=== PATIENT | male | born 1960 | race Hispanic/Latino ===

== ENCOUNTER 2018-04-30 02:11 | Inpatient (IN) | payer SELFPAY ==
[2018-04-30] MEDS ORDERED: Aspirin 325 mg EC Tablets PO STA (02:34)
--- NOTE | 2018-04-30 02:37 | ED PDOC ---
Arrival/HPI - General Time Seen by Provider: 04/30/18 02:30 Historian: Patient - Critical Care Critical Care Minutes: 30 minutes - History of Present Illness Narrative History of Present Illness (Text): 04/30/18 02:33 58 year old male, past medical history includes diabetes, presents to the emergency department complaining of chest pain, left-sided shoulder pain, and body aches that began 4 days ago. poor historian. no h/o of mi, stress test, cath in past. . Patient denies any fever, chills, shortness of breath, nausea, vomiting, diarrhea, urinary symptoms, back pain, neck pain, headache, dizziness , or any other complaints. 04/30/18 04:50 Time/Duration: Other (4 days) Symptom Onset: Gradual Symptom Course: Unchanged Activities at Onset: Light Context: Home Past Medical History - Provider Review Nursing Documentation Reviewed: Yes Family/Social History - Physician Review Nursing Documentation Reviewed: Yes Family/Social History: No Known Family HX Allergies/Home Meds Allergies/Adverse Reactions: Allergies No Known Allergies Allergy (Verified 04/30/18 02:31) Home Medications: Home Meds Medication Instructions Recorded Confirmed No Known Home Med 04/30/18 04/30/18 Review of Systems - Physician Review All systems were reviewed & negative as marked: Yes - Review of Systems Constitutional: absent: Fevers, Other (Chills) Respiratory: absent: SOB Cardiovascular: Chest Pain Gastrointestinal: absent: Diarrhea, Nausea, Vomiting Musculoskeletal: Other (left-sided shoulder pain and body aches). absent: Back Pain, Neck Pain Neurological: absent: Headache, Dizziness Physical Exam Vital Signs Reviewed: Yes Vital Signs Temp Pulse Resp BP Pulse Ox 04/30/18 02:15 98.2 F 104 H 105 H 154/95 H 96 Temperature: Afebrile Blood Pressure: Hypertensive Pulse: Tachycardic Respiratory Rate: Tachypneic Appearance: Positive for: Well-Appearing, Non-Toxic, Comfortable, Other ( Morbidly obese) Pain Distress: None Mental Status: Positive for: Alert and Oriented X 3 - Systems Exam Head: Present: Atraumatic, Normocephalic Pupils: Present: PERRL Extroacular Muscles: Present: EOMI Conjunctiva: Present: Normal Mouth: Present: Moist Mucous Membranes Neck: Present: Normal Range of Motion Respiratory/Chest: Present: Clear to Auscultation, Good Air Exchange. No: Respiratory Distress, Accessory Muscle Use Cardiovascular: Present: Regular Rate and Rhythm, Normal S1, S2. No: Murmurs Abdomen: No: Tenderness, Distention, Peritoneal Signs Back: Present: Normal Inspection Upper Extremity: Present: Normal Inspection. No: Cyanosis, Edema Lower Extremity: Present: Normal Inspection. No: Edema Neurological: Present: GCS=15, CN II-XII Intact, Speech Normal Skin: Present: Warm, Dry, Normal Color. No: Rashes Psychiatric: Present: Alert, Oriented x 3, Normal Insight, Normal Concentration Medical Decision Making ED Course and Treatment: 04/30/18 02:28 Impression: 58 year old male presents complaining of chest pain, left-sided shoulder pain, and body aches that began 4 days ago. Plan: -- Labs -- Brilinta, Ecotrin, Heparin -- Urinalysis -- Chest X-ray -- EKG -- Reassess and disposition Progress Notes: 04/30/18 02:31 Code heart called EKG shows STEMI anterior lateral. Interpreted by me. 04/30/18 02:34 Case discussed with Dealer Development Manager Dr. Camejo requesting patient be administered Brilinta and Heparin ASA Patient was directly transported to [facility] Speaking [facility]. 04/30/18 02:52 CXR Impression: As read by me, no infiltrates 04/30/18 02:57 Case discussed with medical transcription supervisor and Dr. Harper Mondragon who is aware and agrees with the plan. Accepts patient into hospitalist service. - Critical Care Critical Care Minutes: 30 minutes - Lab Interpretations Lab Results: 04/30/18 02:35 04/30/18 02:35 Lab Results 04/30/18 02:35: PT 11.3, INR 0.99, APTT 25.8 04/30/18 02:35: WBC 13.7 H, RBC 4.76, Hgb 14.6, Hct 42.2, MCV 88.7, MCH 30.7, MCHC 34.6, RDW 13.4, Plt Count 197, MPV 11.8 H, Gran % 70.6 H, Lymph % (Auto) 15.7 L, [place] % (Auto) 12.5 H, Eos % (Auto) 1.1 L, Baso % (Auto) 0.1, Gran # 9.65 H, Lymph # (Auto) 2.2, [place] # (Auto) 1.7 H, Eos # (Auto) 0.2, Baso # (Auto ) 0.02 04/30/18 02:35: Sodium 140, Potassium 4.0, Chloride 104, Carbon Dioxide 25, Anion Gap 15, BUN 14, Creatinine 0.7 L, Est GFR ( Amer) > 60, Est GFR ( Non-Af Amer) > 60, Random Glucose 193 H, Calcium 9.9, Phosphorus 3.1, Magnesium 2.3 H, Total Bilirubin 2.3 H, AST 72 H, ALT 79 H, Alkaline Phosphatase 97, Lactate Dehydrogenase 1024 H, Total Creatine Kinase 240 H, CK-MB (CK-2) 4.7 H, CK-MB (CK-2) % Cancelled, Troponin I 14.00 H*, Total Protein 7.6, Albumin 4.5, Globulin 3.2, Albumin/Globulin Ratio 1.4 I have reviewed the lab results: Yes - RAD Interpretation Radiology Orders: 04/30/18 02:37 CHEST PORTABLE [RAD] Stat - EKG Interpretation Interpreted by ED Physician: Yes Type: 12 lead EKG - Medication Orders Current Medication Orders: Aspirin (Ecotrin) 81 mg PO DAILY TER[facility] Atorvastatin Calcium (Lipitor) 80 mg PO DIN [facility] Carvedilol (Coreg) 3.125 mg PO BID [facility] Sodium Chloride (Sodium Chloride 0.45%) 1,000 mls @ 100 mls/hr IV .Q10H [facility] Stop: 04/30/18 08:45 Lisinopril (Zestril) 2.5 mg PO DAILY [facility] Ticagrelor (Brilinta) 90 mg PO BID [facility] Discontinued Medications Aspirin (Ecotrin) 325 mg PO STAT STA Stop: 04/30/18 02:35 Last Admin: 04/30/18 02:39 Dose: 325 mg Heparin Sodium (Porcine) (Heparin) 5,000 units IV ONCE ONE PRN Reason: Protocol Stop: 04/30/18 02:36 Last Admin: 04/30/18 02:45 Dose: 5,000 units eMAR Start Stop Document 04/30/18 02:45 EMILIE (Rec: 04/30/18 03:16 EMILIE [id number]) Intravenous Solution Start Date 04/30/18 Start Time 02:45 End Date 04/30/18 End time 02:46 Total Infusion Time 1 Morphine Sulfate (Morphine) 2 mg IVP ONCE ONE Stop: 04/30/18 04:42 Nitroglycerin (Nitrostat Sl Tab) 0.4 mg SL Q5M TER[facility] Stop: 04/30/18 04:41 Ticagrelor (Brilinta) 180 mg PO STAT STA Stop: 04/30/18 02:35 Last Admin: 04/30/18 02:39 Dose: 180 mg - Scribe Statement The provider has reviewed the documentation as recorded by the Boubacar Hanks Provider Scribe Attestation: All medical record entries made by the Boubacar were at my direction and personally dictated by me. I have reviewed the chart and agree that the record accurately reflects my personal performance of the history, physical exam, medical decision making, and the department course for this patient. I have also personally directed, reviewed, and agree with the discharge instructions and disposition. Disposition/Present on Arrival - Present on Arrival Any Indicators Present on Arrival: No - Disposition Have Diagnosis and Disposition been Completed?: Yes Diagnosis: STEMI (ST elevation myocardial infarction) Disposition: HOSPITALIZED Disposition Time: 02:00 Condition: CRITICAL
[2018-04-30] MEDS ORDERED: Lidocaine PF 2% (5 ml) Inj (For Cardiac Arrhy) ONE (02:44)
[2018-04-30] MEDS ORDERED: Phenylephrine 10 mg/ml Inj ONE (02:44)
[2018-04-30] MEDS ORDERED: Iohexol 350mgl/ml 50 ML ONE (02:44)
[2018-04-30] MEDS ORDERED: Nitroglycerin 50mg in D5W 0 MG/0 ML BOTTLE IV ONE (02:45)
[2018-04-30] MEDS ORDERED: Iodixanol 320 MG/ML 100 ML BOTTLE IV ONE (02:45)
[2018-04-30] MEDS ORDERED: Iodixanol 320 MG/ML 200 ML BOTTLE IV ONE (02:45)
[2018-04-30] MEDS ORDERED: Midazolam 2 MG/2 ML VIAL ONE ×2 (02:47→03:10)
[2018-04-30 02:56] LABS: INR 0.99; PROTHROMBIN TIME 11.3 SECONDS (9.4-12.5)
[2018-04-30 02:59] LABS: ALBUMIN 4.5 g/dL (3.0-4.8); BLOOD UREA NITROGEN 14 mg/dL (7-21); CALCIUM 9.9 mg/dL (8.4-10.5); GFR AFRICAN-AMERICAN > 60; GFR NON-AFRICAN AMERICAN > 60; PARTIAL THROMBOPLASTIN TIME 25.8 Seconds (25.1-36.5)
[2018-04-30 03:00] LABS: ALB/GLOB RATIO 1.4 (1.1-1.8); ALT/SGPT 79 U/L (7-56); AST/SGOT 72 U/L (17-59)
[2018-04-30 03:06] LABS: BASO # 0.02 K/mm3 (0.0-2.0); BASO % 0.1 % (0.0-3.0); EOS # 0.2 (0.0-0.7); EOS % 1.1 % (1.5-5.0); GRAN # 9.65 (1.4-6.5); GRAN % 70.6 % (50.0-68.0); HEMOGLOBIN 14.6 g/dL (14.0-18.0); LYMPH # 2.2 (1.2-3.4); LYMPH % 15.7 % (22.0-35.0); MEAN CELL VOLUME 88.7 fl (80.0-105.0); MEAN CORPUSCULAR HEMOGLOBIN 30.7 pg (25.0-35.0); MEAN CORPUSCULAR HGB CONC 34.6 g/dl (31.0-37.0); MEAN PLATELET VOLUME 11.8 fl (7.0-11.0); MONO # 1.7 (0.1-0.6); MONO % 12.5 % (1.0-6.0); RBC 4.76 10^6/uL (3.5-6.1); RED CELL DISTRIBUTION WIDTH 13.4 % (11.5-14.5); WHITE BLOOD COUNT 13.7 10^3/ul (4.5-11.0)
[2018-04-30] MEDS ORDERED: Eptifibatide 20 mg/10mL Inj IVP ONE (03:15)
--- NOTE | 2018-04-30 03:17 | CP.PCM.HP ---
History of Present Illness - History of Present Illness History of Present Illness: Jason Murray D.O. Internal Medicine [employer], PGY-1. History and Physical for Dr Alanna Silva: Chest pain x4 days HPI: 58 y/o male with PMH of HTN, DM2 presents to ED with 4 days of left sided chest pain, pressure-like, 6-7/10, constant, radiates to left axilla and lt shoulder, no alleviating or worsening factors. Patient though it is muscloskeletal pain and did not seek medical attention, but decided to come to ED for worsening of symptoms. Pain is not associated with palpitation, nausea, vomiting, cough, dizziness. Patient ststed that his BP reading at home in 150s/90s but does not take any meds except baby asprin. He is also diabetic. Patient denied h/o similar symptoms in the past, CVA, DVT, PVD . Patient had no recent sick contacts, or recent travel. In ED: EKG: NSR @100, inferior and anterolateral infarct Code heart was announsed. patient was mahoney to lab tech. PMH:HTN, DM2 (non compliant with meds) PSH: denied SocH: no smoking, no drug, drinks alcohol FH: Father at 60s with CAD, mom at age 71 of CAD MEDS: ASA ALL: NKDA Present on Admission - Present on Admission Any Indicators Present on Admission: No Review of Systems - Constitutional Constitutional: Sleep Apnea. absent: Chills, Fever, Headache, Night Sweats - EENT Eyes: absent: Blurred Vision, Discharge, Irritation Ears: absent: Ear Pain, Dizziness Nose/Mouth/Throat: absent: Nasal Congestion, Nose Pain, Dental Pain - Cardiovascular Cardiovascular: Chest Pain, Chest Pain at Rest. absent: Claudication, Diaphoresis, Edema, Irregular Heart Rhythm, Leg Edema, Orthopnea, Palpitations, Paroxysmal Nocturnal Dyspnea - Respiratory Respiratory: absent: Cough, Hemoptysis, Dyspnea on Exertion, Pain on Inspiration - Gastrointestinal Gastrointestinal: absent: Abdominal Pain, Early Satiety, Hematemesis - Genitourinary Genitourinary: absent: Difficulty Urinating, Pyuria, Nocturia, Urinary Incontinence, Urinary Urgency - Musculoskeletal Musculoskeletal: absent: Back Pain, Myalgias, Neck Pain, Numbness - Integumentary Integumentary: absent: Lesions, Pruritus, Rash - Neurological Neurological: absent: Burning Sensations, Dizziness, Numbness, Focal Weakness, Loss of Vision, Sensory Deficit - Psychiatric Psychiatric: absent: Anxiety, Depression - Endocrine Endocrine: absent: Excessive Sweating, Fatigue, Palpitations, Polydipsia, Polyphagia - Hematologic/Lymphatic Hematologic: absent: Easy Bleeding, Easy Bruising Past Patient History - Past Social History Smoking Status: Former Smoker Alcohol: > 2 Drinks/Day - CARDIAC Hx Cardiac Disorders: Yes Hx Hypertension: Yes - PULMONARY Hx Respiratory Disorders: No - NEUROLOGICAL Hx Neurological Disorder: No - HEENT Hx HEENT Problems: No - RENAL Hx Chronic Kidney Disease: No - ENDOCRINE/METABOLIC Hx Diabetes Mellitus Type 2: Yes - HEMATOLOGICAL/ONCOLOGICAL Hx Blood Disorders: No - INTEGUMENTARY Hx Dermatological Problems: No - MUSCULOSKELETAL/RHEUMATOLOGICAL Hx Musculoskeletal Disorders: No - GASTROINTESTINAL Hx Gastrointestinal Disorders: No - GENITOURINARY/GYNECOLOGICAL Hx Genitourinary Disorders: No - PSYCHIATRIC Hx Psychophysiologic Disorder: No Hx Substance Use: No - SURGICAL HISTORY Hx Surgeries: No - ANESTHESIA Hx Anesthesia: No Meds Allergies/Adverse Reactions: Allergies Allergy/AdvReac Type Severity Reaction Status Date / Time No Known Allergies Allergy Verified 04/30/18 02:31 Physical Exam - Constitutional Appears: Well, Non-toxic, No Acute Distress - Head Exam Head Exam: ATRAUMATIC, NORMAL INSPECTION, NORMOCEPHALIC - Eye Exam Eye Exam: EOMI, Normal appearance, PERRL Pupil Exam: NORMAL ACCOMODATION, PERRL - ENT Exam ENT Exam: Mucous Membranes Moist, Normal Exam - Neck Exam Neck exam: Positive for: Normal Inspection - Respiratory Exam Respiratory Exam: Clear to Auscultation Bilateral, NORMAL BREATHING PATTERN - Cardiovascular Exam Cardiovascular Exam: REGULAR RHYTHM - GI/Abdominal Exam GI & Abdominal Exam: Normal Bowel Sounds, Soft. absent: Mass, Tenderness - Extremities Exam Extremities exam: Positive for: normal capillary refill, normal inspection. Negative for: pedal edema - Back Exam Back exam: NORMAL INSPECTION - Neurological Exam Neurological exam: Alert, CN II-XII Intact, Normal Gait, Oriented x3, Reflexes Normal - Psychiatric Exam Psychiatric exam: Normal Affect, Normal Mood - Skin Skin Exam: Dry, Intact, Normal Color, Warm Results - Vital Signs Recent Vital Signs: Last Vital Signs Temp 98.2 F 04/30/18 02:15 Pulse 104 H 04/30/18 02:15 Resp 105 H 04/30/18 02:15 BP 154/95 H 04/30/18 02:15 Pulse Ox 96 04/30/18 02:15 - Labs Result Diagrams: 04/30/18 02:35 04/30/18 02:35 Labs: Laboratory Results - last 24 hr 04/30/18 02:45 BBK History Checked No verified bt - EKG Data EKG Interpreted by: ER Physician EKG shows normal: Sinus rhythm, ST-T waves Rate: Tachycardia Assessment & Plan - Assessment and Plan (Free Text) Assessment: 58 y/o male with PMH of HTN, DM2 presents to ED with 4 days of left sided chest pain, pressure-like, 6-7/10, constant, radiates to left axilla and left shoulder , no alleviating or worsening factors. EKG: NSR @100, inferior and anterolateral infarct .Code heart was announced. patient was rushed to lab tech. Plan: 1) Chest pain/ ACS EKG: NSR @100, inferior and anterolateral infarct ASA 325, Heparin 5000, Brilinta were given Lactate 1024 f/u Troponin 14 x1 , trend Lactate 1024 CK 240 Cardiac Cath: Mid LAD 95% occlusion , BENIGNO placed Echo to be done in am 2) HTN uncontrolled, non compliant with medications BP monitor Metoprolol ACEI ASA 81 Plavix 75 Lipid panel 3)DM2: HbA1c accu check q6h ISS 4)Transaminitis: AST/ALT 72/79 monitor 5)Others GI ppx protonix healthy heart diet OOB with assistance fall precaution, post cath Case reviewed and discussed with Dr Mondragon. - Date & Time Date: 04/30/18 (n) Time: 03:22
[2018-04-30 03:18] LABS: CK-MB 4.7 ng/mL (0.0-3.6)
[2018-04-30] MEDS ORDERED: Sodium Chloride 0.45% 1,000 ML IV SCH (03:45)
[2018-04-30] MEDS ORDERED: Morphine 2 mg/ml ISec IVP ONE (04:41)
[2018-04-30 08:25] VITALS: BMI 37.7
--- NOTE | 2018-04-30 08:26 | RAD ---
Date of service: 04/30/2018 HISTORY: CP COMPARISON: No prior. FINDINGS: LUNGS: The lungs are well inflated. There is mild pulmonary venous congestion. PLEURA: No significant pleural effusion identified, no pneumothorax apparent. CARDIOVASCULAR: Mild cardiomegaly. OSSEOUS STRUCTURES: No significant abnormalities. VISUALIZED UPPER ABDOMEN: Normal. OTHER FINDINGS: None. IMPRESSION: No active pulmonary disease.
[2018-04-30] MEDS: Insulin Reg-LOW-Coverage SC SCH ×4 (09:10→22:58)
--- NOTE | 2018-04-30 10:19 | CON ---
Copied To: Kody Emery MD Attending MD: Kody Emery MD DATE: 04/30/2018 SUBJECTIVE: This is a 58-year-old gentleman with history of diabetes type 2, hypertension, hypercholesterolemia, who presented to [facility] with left-sided pressure-like chest pain 4-5/10 that was waxing and waning over 3-day period. No significant alleviating or aggravating factors. He tried aspirin at home; however, it did not help. Pain was radiating to jaw and left arm. It was not associated with shortness of breath or diaphoresis. Last night, pain got significantly worse and prompted him to be evaluated at [facility] ER. The patient was found to have ST-elevated IN and was taken to supervisor dental laboratory emergently where a stent in LAD was placed. No fever, no chills, no sweats, no nausea, no vomiting, no diarrhea, no constipation. The patient was transferred to ICU after the PCI for further management and monitoring. PAST MEDICAL HISTORY: Diabetes mellitus type 2, coronary artery disease, hypertension, hypercholesterolemia. ALLERGIES: NKDA. FAMILY HISTORY: Noncontributory. SOCIAL HISTORY: The patient is ex-smoker. No alcohol or illicit drug abuse. REVIEW OF SYSTEMS: Review of 12-organ systems other than mentioned in history of present illness is negative. MEDICATIONS AT HOME: None. PHYSICAL EXAMINATION: VITAL SIGNS: Temperature 98.1, blood pressure 122/78, oxygen saturation 95% on nasal cannula, respiratory rate 18, heart rate 99. ENT: Head and neck atraumatic. LUNGS: Clear to auscultation bilaterally. HEART: Regular rate and rhythm. S1 and S2 normal. ABDOMEN: Soft, nontender and nondistended. MUSCULOSKELETAL: No C/C/E. NEURO: The patient moves all extremities spontaneously. SKIN: Moist. PSYCH: The patient is alert, awake and oriented x3. LABORATORY DATA: Sodium 140, potassium 4, chloride 104, carbon dioxide 25, BUN 14, creatinine 0.7, glucose 193, AST 72, ALT 79, total bilirubin 2.3, troponin 14. WBC 15.7, hemoglobin 14.6, platelet count 197. INR 0.99. MEDICATIONS: Aspirin 81 mg p.o. daily, Lipitor, Coreg, heparin, Brilinta, lisinopril. ASSESSMENT AND PLAN: This is a 58-year-old gentleman, who presented with ST-elevated myocardial infarction, status post percutaneous coronary intervention with stenting to left anterior descending artery. At present time, the patient will be on dual antiplatelet therapy, beta-blockers, statins and ANGLE inhibitors. The patient does have some pleuritic pain, which appears to be reactive/inflammatory and not cardiac. Will give ibuprofen and re- eval. Very mild leukocytosis also appears to be reactive and I have very low suspicion for sepsis or infection. We will continue target euvolemia, euglycemia, normothermia and oxygen saturation more than 90%. We will touch base with cardiology Service whether the patient can be transferred to telemetry. ccm time 40 min Kody Emery MD [email or web address]
[2018-04-30] MEDS ORDERED: Naproxen 550 mg Tab PO ONE (10:30)
--- NOTE | 2018-04-30 12:12 | CP.PCM.CON ---
Addendum entered and electronically signed by Chuy Scanlon DO 12:36: Dispo: At this time, patient is stable for transfer from MICU Original Note: <Chuy Scanlon - Last Filed: 04/30/18 11:23> History of Present Illness - History of Present Illness History of Present Illness: ICU consult note: [facility] PGY - 2 IM Resident Reason for consult: Post cath monitoring HPI: 58 year old male with pertinent history of HTN and DM2 presented with 4 days of left sided chest pain. EKG in the ED showed ST elevations in the anterolateral leads (V2-V6) with positive troponins of 14. Patient was taken to flue dust laborer, where mid-LAD was stented. Patient is doing much better this morning but states he has mild chest discomfort. Denies having an AMI or stents in the past. Patient states he had one stress test over 10 years ago; clearly has poor follow up with physicians Review of Systems: 12 point ROS obtained and negative except as per HPI PMH: HTN, DM2 (non compliant with meds) PSH: Denies SocH: Denies tobacco and illicits, + alcohol FH: Father at 60s with CAD, mom at age 71 of CAD Home Meds: ASA ALL: NKDA PMD: None Past Patient History - Past Social History Smoking Status: Former Smoker Alcohol: > 2 Drinks/Day - CARDIAC Hx Cardiac Disorders: Yes Hx Hypertension: Yes - PULMONARY Hx Respiratory Disorders: No - NEUROLOGICAL Hx Neurological Disorder: No - HEENT Hx HEENT Problems: No - RENAL Hx Chronic Kidney Disease: No - ENDOCRINE/METABOLIC Hx Diabetes Mellitus Type 2: Yes - HEMATOLOGICAL/ONCOLOGICAL Hx Blood Disorders: No - INTEGUMENTARY Hx Dermatological Problems: No - MUSCULOSKELETAL/RHEUMATOLOGICAL Hx Musculoskeletal Disorders: No - GASTROINTESTINAL Hx Gastrointestinal Disorders: No - GENITOURINARY/GYNECOLOGICAL Hx Genitourinary Disorders: No - PSYCHIATRIC Hx Psychophysiologic Disorder: No Hx Substance Use: No - SURGICAL HISTORY Hx Surgeries: No - ANESTHESIA Hx Anesthesia: No Meds Allergies/Adverse Reactions: Allergies Allergy/AdvReac Type Severity Reaction Status Date / Time No Known Allergies Allergy Verified 04/30/18 02:31 - Medications Medications: Current Medications Aspirin (Ecotrin) 81 mg PO DAILY TERESA Last Admin: 04/30/18 09:09 Dose: 81 mg Atorvastatin Calcium (Lipitor) 80 mg PO DIN [facility] Carvedilol (Coreg) 3.125 mg PO BID [facility] Last Admin: 04/30/18 09:09 Dose: 3.125 mg Insulin Human Regular (Humulin R Low) 0 units SC ACHS [facility] PRN Reason: Protocol Last Admin: 04/30/18 09:10 Dose: 2 unit Lisinopril (Zestril) 2.5 mg PO DAILY [facility] Ticagrelor (Brilinta) 90 mg PO BID [facility] Last Admin: 04/30/18 09:09 Dose: 90 mg Physical Exam - Constitutional Appears: Well - Head Exam Head Exam: ATRAUMATIC, NORMAL INSPECTION, NORMOCEPHALIC - Eye Exam Eye Exam: EOMI, Normal appearance, PERRL Pupil Exam: NORMAL ACCOMODATION, PERRL - ENT Exam ENT Exam: Mucous Membranes Moist, Normal Exam - Neck Exam Neck exam: Positive for: Normal Inspection - Respiratory Exam Respiratory Exam: Clear to Auscultation Bilateral, NORMAL BREATHING PATTERN - Cardiovascular Exam Cardiovascular Exam: REGULAR RHYTHM - GI/Abdominal Exam GI & Abdominal Exam: Normal Bowel Sounds, Soft. absent: Tenderness - Extremities Exam Extremities exam: Positive for: normal inspection - Back Exam Back exam: NORMAL INSPECTION - Neurological Exam Neurological exam: Alert, CN II-XII Intact, Normal Gait, Oriented x3, Reflexes Normal - Psychiatric Exam Psychiatric exam: Normal Affect, Normal Mood - Skin Skin Exam: Dry, Intact, Normal Color, Warm - Additional Findings Additional findings: Cath site on R inguinal region c/d/i with pressure dressing Results - Vital Signs Recent Vital Signs: Last Vital Signs Temp 98.1 F 04/30/18 04:00 Pulse 106 H 04/30/18 09:09 Resp 27 H 04/30/18 07:00 BP 134/78 04/30/18 09:09 Pulse Ox 95 04/30/18 07:00 - Labs Result Diagrams: 04/30/18 02:35 04/30/18 02:35 Labs: Laboratory Results - last 24 hr 04/30/18 04/30/18 02:45 03:00 Blood Type B POSITIVE Blood Type Confirm B POSITIVE Antibody Screen Negative BBK History Checked No verified bt Assessment & Plan - Assessment and Plan (Free Text) Assessment: 58 year old male with pertinent medical history of DM2 and HTN under ICU management for post-cath management. Acute STEMI s/p mLAD stent Acute Leukocytosis, likely reactive to procedure Plan Neuro - Maintain normothermia Pulm - Nasal cannula 2L PRN for SOB Cardio - Continue with ANGLE-I, B-Blockers, Statin, DAPT - HHD - Maintain MAP > 65 - Monitor chest pain, likely reactive to procedure and recent AMI - Assess pulses, cath site, and vitals as per orders GI - Continue with HHD - Continue with GI PPX - Maintain euvolemia ID - Monitor leukocytosis, no ABx needed at this time Endo - Hold oral DM medications - RISS medium - Fingersticks ACHS Heme - Leave DVT PPX up to cardiology <Kody Emery - Last Filed: 04/30/18 14:34> Meds - Medications Medications: Current Medications Aspirin (Ecotrin) 81 mg PO DAILY [facility] Last Admin: 04/30/18 09:09 Dose: 81 mg Atorvastatin Calcium (Lipitor) 80 mg PO DIN [facility] Carvedilol (Coreg) 6.25 mg PO BID [facility] Ibuprofen (Motrin Tab) 600 mg PO Q6H PRN PRN Reason: Pain, severe (8-10) Insulin Human Regular (Humulin R Low) 0 units SC ACHS [facility] PRN Reason: Protocol Last Admin: 04/30/18 09:10 Dose: 2 unit Lisinopril (Zestril) 2.5 mg PO DAILY [facility] Naproxen (Anaprox Ds) 550 mg PO BID [facility] Stop: 05/01/18 23:59 Pantoprazole Sodium (Protonix Ec Tab) 40 mg PO 0600 [facility] Ticagrelor (Brilinta) 90 mg PO BID [facility] Last Admin: 04/30/18 09:09 Dose: 90 mg Results - Vital Signs Recent Vital Signs: Last Vital Signs Temp 98.1 F 04/30/18 04:00 Pulse 106 H 04/30/18 09:09 Resp 27 H 04/30/18 07:00 BP 134/78 04/30/18 09:09 Pulse Ox 95 04/30/18 07:00 - Labs Result Diagrams: 04/30/18 02:35 04/30/18 02:35 Labs: Laboratory Results - last 24 hr 04/30/18 04/30/18 02:45 03:00 Blood Type B POSITIVE Blood Type Confirm B POSITIVE Antibody Screen Negative BBK History Checked No verified bt Attending/Attestation - Attestation I have personally seen and examined this patient.: Yes I have fully participated in the care of the patient.: Yes I have reviewed all pertinent clinical information: Yes Notes (Text): 04/30/18 14:[address] Emery's note
--- NOTE | 2018-04-30 15:06 | PN ---
Copied To: Gracie Carrillo MD Attending MD: Gracie Carrillo MD DATE: 04/30/2018 REASON FOR DICTATION: Covering Dr. Jake Camejo. SUBJECTIVE: The patient denies any chest pain, shortness of breath, any palpitation. Sometimes, he feels sharp pain on taking a deep breath. OBJECTIVE: GENERAL: Not in any apparent distress. Dressing changed from right femoral groin looks okay. No hematoma noted. VITAL SIGNS: Temperature afebrile, heart rate 99, blood pressure 134/78. HEENT: PERRLA. Extraocular muscles intact. NECK: Supple. No carotid bruits or thyromegaly. CHEST: Clear to auscultation. HEART: S1 and S2 regular. ABDOMEN: Soft. EXTREMITIES: Clubbing and cyanosis negative. LABORATORY DATA: Blood workup as follows; WBC 13.7, hemoglobin , hematocrit 42.2, platelet count 197. Chemistry shows sodium 140, potassium 4, chloride 104, carbon dioxide 25, anion gap of 15, BUN 14, creatinine 0.7, troponin 14. IMPRESSION: A 58-year-old male with diabetes, hypertension, hyperlipidemia. Came in with acute anterior wall myocardial infarction, status post angioplasty of left anterior descending by Dr. Camejo. 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 We will get echocardiogram to assess left ventricular function. Give one dose of Naprosyn. Continue Brilinta. Continue aspirin. Continue atorvastatin. Continue low-dose beta-karla. We will review the films and we will make recommendation further. If remained stable, we will transfer to telemetry. We will get lipid profile, TSH, hemoglobin A1c in the morning. We will increase Coreg to 6.25 from today and cancel 3.125. We will follow. Further recommendations depending on the hospital course and after finding of the echocardiography and lipid profile, TSH, hemoglobin A1c. We will give 3 doses of Naprosyn for chest pain. We will put out of bed to chair and transfer to telemetry. Thank you, Dr. Durham, for providing us the opportunity in taking care of the patient, Ralph Hardin. Gracie Carrillo MD
[2018-04-30] MEDS: Naproxen 550 mg Tab PO SCH (17:19)
--- NOTE | 2018-04-30 22:32 | CARD ---
APPROVED REPORT Date of service: 04/30/2018 EKG Measurement Heart [id number] <Conclusion> Normal sinus rhythm Inferior infarct, possibly acute Anterolateral infarct, possibly acute ACUTE [place] Abnormal ECG
--- NOTE | 2018-04-30 22:41 | CARD ---
APPROVED REPORT Date of service: 04/30/2018 EKG Measurement Heart [id number] <Conclusion> Normal sinus rhythm Inferior infarct, possibly acute Anterolateral infarct, possibly acute ACUTE [place] Abnormal ECG
--- NOTE | 2018-04-30 22:42 | CARD ---
APPROVED REPORT Date of service: 04/30/2018 EKG Measurement Heart [id number] <Conclusion> Sinus tachycardia Possible Left atrial enlargement Low voltage QRS Inferior infarct, possibly acute Anterolateral infarct, possibly acute ACUTE [place] Abnormal ECG
[2018-05-01] MEDS ORDERED: Pantoprazole 40 mg EC Tab PO SCH (06:00)
[2018-05-01 06:19] LABS: BASO # 0.02 K/mm3 (0.0-2.0); BASO % 0.2 % (0.0-3.0); EOS # 0.2 (0.0-0.7); GRAN # 8.63 (1.4-6.5); GRAN % 76.6 % (50.0-68.0); HEMOGLOBIN 13.3 g/dL (14.0-18.0); LYMPH # 1.2 (1.2-3.4); LYMPH % 10.5 % (22.0-35.0); MEAN CELL VOLUME 88.6 fl (80.0-105.0); MEAN CORPUSCULAR HEMOGLOBIN 30.3 pg (25.0-35.0); MEAN CORPUSCULAR HGB CONC 34.2 g/dl (31.0-37.0); MEAN PLATELET VOLUME 11.5 fl (7.0-11.0); MONO # 1.2 (0.1-0.6); MONO % 10.7 % (1.0-6.0); RBC 4.39 10^6/uL (3.5-6.1); RED CELL DISTRIBUTION WIDTH 13.4 % (11.5-14.5); WHITE BLOOD COUNT 11.3 10^3/ul (4.5-11.0)
[2018-05-01 07:38] LABS: BLOOD UREA NITROGEN 22 mg/dL (7-21); CALCIUM 9.6 mg/dL (8.4-10.5); GFR AFRICAN-AMERICAN > 60; GFR NON-AFRICAN AMERICAN > 60
[2018-05-01 07:39] LABS: ALB/GLOB RATIO 1.3 (1.1-1.8); ALT/SGPT 89 U/L (7-56); AST/SGOT 69 U/L (17-59); LDL CHOLESTEROL 27 mg/dL (0-129)
[2018-05-01 07:40] LABS: HDL CHOLESTEROL 43 mg/dL (29-60)
[2018-05-01 07:42] LABS: TROPONIN I 9.61 ng/mL
[2018-05-01] MEDS: Insulin Reg-LOW-Coverage SC SCH ×3 (08:31→17:28)
[2018-05-01] MEDS: Naproxen 550 mg Tab PO SCH (09:07)
[2018-05-01] MEDS ORDERED: Potassium Chloride 20 mEq ER Tab PO ONE (11:37)
--- NOTE | 2018-05-01 11:51 | CARD ---
APPROVED REPORT Date of service: 05/01/2018 EKG Measurement Heart [id number] <Conclusion> Normal sinus rhythm Low voltage QRS Inferior infarct, possibly acute Anterolateral infarct, possibly acute ACUTE [place] Abnormal ECG
--- NOTE | 2018-05-01 14:50 | CP.PCM.PN ---
<Edward Peng - Last Filed: 05/01/18 15:34> Subjective - Date & Time of Evaluation Date of Evaluation: 05/01/18 Time of Evaluation: 14:47 - Subjective Subjective: Edward Peng, PGY-1, Internal Medicine Progress Note Patient seen and examined at bedside. Last night, patient had one episode of one missed beat. Patient denies chest pain after naproxen administration. Patient also denies heart palpitations, shortness of breath, nausea, vomiting, constipation, diarrhea, dysuria, and hematuria. Objective - Vital Signs/Intake and Output Vital Signs (last 24 hours): Temp Pulse Resp BP Pulse Ox 97.8 F 87 17 101/70 98 05/01/18 12:00 05/01/18 12:00 05/01/18 12:00 05/01/18 12:00 05/01/18 09:00 Intake and Output: 05/01/18 05/01/18 06:59 18:59 Intake Total 720 Balance 720 - Medications Medications: Current Medications Aspirin (Ecotrin) 81 mg PO DAILY [facility] Last Admin: 05/01/18 09:08 Dose: 81 mg Atorvastatin Calcium (Lipitor) 80 mg PO DIN [facility] Last Admin: 04/30/18 17:20 Dose: 80 mg Carvedilol (Coreg) 6.25 mg PO BID [facility] Last Admin: 05/01/18 09:07 Dose: 6.25 mg Clopidogrel Bisulfate (Plavix) 75 mg PO DAILY [facility] Glipizide (Glucotrol) 5 mg PO ACB [facility] Insulin Human Regular (Humulin R Low) 0 units SC ACHS [facility] PRN Reason: Protocol Last Admin: 05/01/18 11:47 Dose: 2 unit Lisinopril (Zestril) 2.5 mg PO DAILY [facility] Last Admin: 05/01/18 09:07 Dose: 2.5 mg Naproxen (Anaprox Ds) 550 mg PO BID [facility] Stop: 05/01/18 23:59 Last Admin: 05/01/18 09:07 Dose: 550 mg Pantoprazole Sodium (Protonix Ec Tab) 40 mg PO 0600 [facility] Last Admin: 05/01/18 05:29 Dose: 40 mg Ticagrelor (Brilinta) 90 mg PO BID [facility] Stop: 05/01/18 22:00 Last Admin: 05/01/18 09:07 Dose: 90 mg - Labs Labs: 05/01/18 05:25 05/01/18 05:25 PT 11.3 SECONDS (9.4-12.5) 04/30/18 02:35 INR 0.99 04/30/18 02:35 APTT 25.8 Seconds (25.1-36.5) 04/30/18 02:35 - Constitutional Appears: Well, Non-toxic - Head Exam Head Exam: ATRAUMATIC, NORMOCEPHALIC - Eye Exam Eye Exam: EOMI Pupil Exam: PERRL - Respiratory Exam Respiratory Exam: Clear to Ausculation Bilateral, NORMAL BREATHING PATTERN - Cardiovascular Exam Cardiovascular Exam: REGULAR RHYTHM, RRR - GI/Abdominal Exam GI & Abdominal Exam: Soft, Normal Bowel Sounds - Extremities Exam Extremities Exam: Full ROM - Neurological Exam Neurological Exam: Alert, Awake, CN II-XII Intact, Oriented x3 Neuro motor strength exam: Left Upper Extremity: 5, Right Upper Extremity: 5, Left Lower Extremity: 5, Right Lower Extremity: 5 - Psychiatric Exam Psychiatric exam: Normal Affect, Normal Mood - Skin Skin Exam: Dry, Intact, Warm Assessment and Plan - Assessment and Plan (Free Text) Assessment: 58 year old male with past medical history of hypertension and diabetes mellitus 2 presents with 4 day history of left sided pressure like chest pain that radiates to left axilla and left shoulder. Plan: STEMI -Cardiac Catherization (04/30): mLAD stent. Full report still pending. Catherization was performed by Dr. Camejo. -EKG (05/01): anterolateral infarct, inferior infarct. Heart rate is 90 bpm, QRS: 104, QTc: 442 -EKG (04/30): anterolateral infarct, inferior infarct. Heart rate is 95 bpm, QRS: 104, QTc: 462 -Troponin: 14 (04/30) to 9.61 (05/01) -LDH: 790 from 1024 -CK: 115 from 240 -Dr. Carrillo had been consulted for cardiology. Continue to follow recommendations. -Hemoglobin A1c: 9.3 -2 doses of naprosyn given for chest pain. 1 dose pending. Pain has been resolved with naprosyn. -Lisinopril 2.5 mg daily -Aspirin 81 mg daily -Plavix: 75 mg daily. Ticagrelor has been discontinued. -Carvedilol 6.25 mg BID -Consistent carbohydrate diet ordered due to history of diabetes. -Echocardiogram pending. -Social work consulted for preparation for discharge. -Physical therapy consulted for preparation for discharge. Diabetes mellitus Type II -Hemoglobin A1c: 9.3 -POC glucose: 246 -Continue sliding scale insulin -Glipizide 5 mg PO -Consistent carbohydrate diet Transaminitis -AST: 69 from 72, ALT: 89 from 79. -Bilirubin 3.0 from 2.3 -Continue to monitor. Hypercholesterolemia -Cholesterol: 231 -Triglycerides: 134 -LDL: 27 -HDL: 43 -Atorvastatin 80 mg PO daily Hypermagnesia -Magnesium: 2.4 from 2.3. -Continue to monitor. GI prophylaxis: pantoprazole 40 mg daily <Aleja Durham - Last Filed: 05/02/18 16:22> Objective - Vital Signs/Intake and Output Vital Signs (last 24 hours): Temp Pulse Resp BP Pulse Ox 98 F 93 H 18 131/87 96 05/01/18 18:00 05/01/18 18:00 05/01/18 18:00 05/01/18 18:00 05/01/18 18:00 Intake and Output: 05/02/18 05/02/18 06:59 18:59 Intake Total 1360 Balance 1360 - Labs Labs: 05/01/18 05:25 05/01/18 05:25 PT 11.3 SECONDS (9.4-12.5) 04/30/18 02:35 INR 0.99 04/30/18 02:35 APTT 25.8 Seconds (25.1-36.5) 04/30/18 02:35 Attending/Attestation - Attestation I have personally seen and examined this patient.: Yes I have fully participated in the care of the patient.: Yes I have reviewed all pertinent clinical information, including history, physical exam and plan: Yes Notes (Text): 05/02/18 16:17 Attending note; Patient seen and examined with resident. Patient's by the bedside. Patient is a 58 year old male with past medical history of hypertension and diabetes mellitus 2 presents with 4 day history of left sided pressure like chest pain that radiates to left axilla and left shoulder. EKG showed ST elevation in the anterolateral leads. Status post code heart and LAD stent placement. Continue aspirin, Plavix, Coreg and lisinopril and Lipitor. Currently patient is pain-free. Ambulating. Denies any shortness of breath. Hypertension and diabetes; dietary education given. Medication compliance insisted. Patient was not taking any medications at home. Patient is advised to complete [employer] Paperwork. Advised to follow up in [facility] clinic upon discharge. The diagnosis, follow-up plan discussed with patient and patient's in detail.
--- NOTE | 2018-05-01 16:36 | CP.PCM.DIS ---
<Edward Peng - Last Filed: 05/02/18 16:27> Provider - Provider Date of Admission: 04/30/18 02:42 Attending physician: Aleja Durham MD Primary care physician: NO FAMILY PROVIDER Consults: Cardiology: Dr. Cerna, Dr. Carrillo Pulmonology/Critical Care: Dr. Munoz Time Spent in preparation of Discharge (in minutes): 100 Diagnosis - Discharge Diagnosis (1) Myocardial infarct Status: Acute Priority: High Onset Date: ~04/30/18 Hospital Course - Lab Results Lab Results: Micro Results 04/30/18 04:00 Naris MRSA Culture (Admit) - Final MRSA NOT DETECTED Most Recent Lab Values WBC 11.3 10^3/ul (4.5-11.0) H 05/01/18 05:25 RBC 4.39 10^6/uL (3.5-6.1) 05/01/18 05:25 Hgb 13.3 g/dL (14.0-18.0) L 05/01/18 05:25 Hct 38.9 % (42.0-52.0) L 05/01/18 05:25 MCV 88.6 fl (80.0-105.0) 05/01/18 05:25 MCH 30.3 pg (25.0-35.0) 05/01/18 05:25 MCHC 34.2 g/dl (31.0-37.0) 05/01/18 05:25 RDW 13.4 % (11.5-14.5) 05/01/18 05:25 Plt Count 194 10^3/uL (120.0-450.0) 05/01/18 05:25 MPV 11.5 fl (7.0-11.0) H 05/01/18 05:25 Gran % 76.6 % (50.0-68.0) H 05/01/18 05:25 Lymph % (Auto) 10.5 % (22.0-35.0) L 05/01/18 05:25 [place] % (Auto) 10.7 % (1.0-6.0) H 05/01/18 05:25 Eos % (Auto) 2.0 % (1.5-5.0) 05/01/18 05:25 Baso % (Auto) 0.2 % (0.0-3.0) 05/01/18 05:25 Gran # 8.63 (1.4-6.5) H 05/01/18 05:25 Lymph # (Auto) 1.2 (1.2-3.4) 05/01/18 05:25 [place] # (Auto) 1.2 (0.1-0.6) H 05/01/18 05:25 Eos # (Auto) 0.2 (0.0-0.7) 05/01/18 05:25 Baso # (Auto) 0.02 K/mm3 (0.0-2.0) 05/01/18 05:25 PT 11.3 SECONDS (9.4-12.5) 04/30/18 02:35 INR 0.99 04/30/18 02:35 APTT 25.8 Seconds (25.1-36.5) 04/30/18 02:35 Sodium 139 mmol/L (132-148) 05/01/18 05:25 Potassium 3.8 mmol/L (3.6-5.0) 05/01/18 05:25 Chloride 101 mmol/L (98-107) 05/01/18 05:25 Carbon Dioxide 27 mmol/L (21-33) 05/01/18 05:25 Anion Gap 15 (10-20) 05/01/18 05:25 BUN 22 mg/dL (7-21) H 05/01/18 05:25 Creatinine 0.7 mg/dl (0.8-1.5) L 05/01/18 05:25 Est GFR ( Amer) > 60 05/01/18 05:25 Est GFR (Non-Af Amer) > 60 05/01/18 05:25 POC Glucose (mg/dL) 168 mg/dL (65-110) H 05/01/18 16:17 Random Glucose 213 mg/dL (70-110) H 05/01/18 05:25 Hemoglobin A1c 9.3 % (4.2-6.5) H 05/01/18 05:25 Calcium 9.6 mg/dL (8.4-10.5) 05/01/18 05:25 Phosphorus 4.2 mg/dL (2.5-4.5) 05/01/18 05:25 Magnesium 2.4 mg/dL (1.7-2.2) H 05/01/18 05:25 Total Bilirubin 3.0 mg/dL (0.2-1.3) H 05/01/18 05:25 AST 69 U/L (17-59) H 05/01/18 05:25 ALT 89 U/L (7-56) H 05/01/18 05:25 Alkaline Phosphatase 113 U/L (38-126) 05/01/18 05:25 Lactate Dehydrogenase 790 U/L (333-699) H 05/01/18 05:25 Total Creatine Kinase 115 U/L (35-230) 05/01/18 05:25 CK-MB (CK-2) 4.7 ng/mL (0.0-3.6) H 04/30/18 02:35 CK-MB (CK-2) % Cancelled 04/30/18 02:35 Troponin I 9.61 ng/mL H* D 05/01/18 05:25 Total Protein 7.1 g/dL (5.8-8.3) 05/01/18 05:25 Albumin 4.0 g/dL (3.0-4.8) 05/01/18 05:25 Globulin 3.2 gm/dL 05/01/18 05:25 Albumin/Globulin Ratio 1.3 (1.1-1.8) 05/01/18 05:25 Triglycerides 134 mg/dL (35-160) 05/01/18 05:25 Cholesterol 231 mg/dL (130-200) H 05/01/18 05:25 LDL Cholesterol Direct 27 mg/dL (0-129) 05/01/18 05:25 HDL Cholesterol 43 mg/dL (29-60) 05/01/18 05:25 TSH 3rd Generation 1.07 mIU/mL (0.46-4.68) 05/01/18 05:25 Blood Type B POSITIVE 04/30/18 02:45 Blood Type Confirm B POSITIVE 04/30/18 03:00 Antibody Screen Negative 04/30/18 02:45 BBK History Checked No verified bt 04/30/18 02:45 - Hospital Course Hospital Course: 58 year old male with past medical history of hypertension, diabetes presented to the emergency medicine department with 4 days of left sided chest pain on 04/30. Patient described chest pain as 6-7/10 pressure-like and constant. Pain radiates to left axilla and left shoulder with no alleviating or worsening factors. Patient thought it was musculoskeletal and did not seek medical attention but decided to come to emergency department for worsening of symptoms. On presentation to the emergency department, troponins ordered showed a troponin of 14.00. EKG showed anterolateral infarct and inferior infarct. Patient was started on aspirin, brilinta, heparin ggt, and NS 0.9%. Patient was immediately taken to the cardiac catherization lab and a mLAD stent was placed by Dr. Camejo successfully. Lisinopril, carvedilol, and atorvastatin were added to the patient's medications after the procedure and heparin drip was stopped. Patient recovered in ICU and was progressed to the telemetry floor. Patient subsequently denied symptoms of arm and back pain but had mild chest pain that resolved with administration of 2 doses of naproxen 550 mg. Echocardiogram obtained on 04/30 showed EF of 43%. Patient continued to have no symptoms but repeat EKG on 05/01 continued to show anterolateral infarct and inferior infarct. Patient's troponin on 05/01 was 9.61. Patient was to be followed. Patient also has a history of diabetes. Hemoglobin A1c on 05/01 was 9.3. Patient was on glipizide and sliding scale insulin to control glucose levels in the hospital. Patient had a slight transaminitis during patient's hospital visit with AST ranging from 69 to 72 and ALT ranging from 79 to 89. Bilirubin ranged from 2.3 to 3. Lipid panel showed an elevated cholesterol at 231. Patient was placed on atorvastatin 80 mg PO daily. Today, patient was doing well and plan was initially to discharge tomorrow after patient was seen by physical therapy and social sciences chair. However, patient 's thought that a doctor had told them that the patient would be discharged at 3:00 PM on 05/01 when this was not correct. No physician had told the patient or his this information. After persistence from patient's to discharge patient and her not understanding the need for patient to stay in hospital for close follow up, we discharged the patient. Patient's vitals were stable, and patient was ambulating without assistance prior to discharge. Patient was cleared by cardiology prior to patient's discharge. Patient was supposed to follow up with the [facility]. However, patient does not have insurance and as a result, will be unable to follow up with the [facility]. Patient was discharged with aspirin 81 mg daily, plavix 75 mg, glipizide 5 mg daily, lisinopril 2.5 mg daily, carvedilol 6.25 mg BID, and atorvastatin 80 mg daily. Patient was told to follow up with a primary care physician and electrical research engineer for recent STEMI. Patient was told to return to the emergency room if the patient had symptoms again or had any other concerning symptoms. - Date & Time of H&P Date of H&P: 04/30/18 Time of H&P: 03:06 Discharge Exam - Head Exam Head Exam: ATRAUMATIC, NORMOCEPHALIC - Eye Exam Eye Exam: EOMI Pupil Exam: PERRL - Respiratory Exam Respiratory Exam: Clear to PA & Lateral, UNREMARKABLE - Cardiovascular Exam Cardiovascular Exam: REGULAR RHYTHM - GI/Abdominal Exam GI & Abdominal Exam: Normal Bowel Sounds, Soft - Extremities Exam Extremities exam: full ROM - Neurological Exam Neurological exam: Alert, CN II-XII Intact, Oriented x3 - Psychiatric Exam Psychiatric exam: Normal Affect, Normal Mood - Skin Skin Exam: Dry, Intact, Normal Color Discharge Plan - Discharge Medications Prescriptions: Aspirin [Ecotrin] 81 mg PO DAILY #30 tabec Atorvastatin [Lipitor] 80 mg PO DIN #30 tab Carvedilol [Coreg] 6.25 mg PO BID #60 tab Clopidogrel [Plavix] 75 mg PO DAILY #30 tab GlipiZIDE [Glucotrol] 5 mg PO ACB #30 tab Lisinopril [Zestril] 2.5 mg PO DAILY #30 tab - Follow Up Plan Condition: CRITICAL Disposition: HOME/ ROUTINE Instructions: Heart Healthy Diet, Coronary Angioplasty (DC), Coronary Heart Disease (DC), Diabetic Meal Planning , Myocardial Infarction (DC), Myocardial Infarction (GEN) Additional Instructions: Upon discharge please take the following medications as prescribed: -ASA 81mg po daily -Lipitor 80mg po hs -Coreg 6.25mg po bid -Plavix 75mg po daily -Glipizide 5mg po acb -Lisinopril 2.5mg po daily Please follow up with a primary care physician within the next 7 days and please follow up with electrical research engineer Dr. Carrillo within the next 10 days. If you choose to apply for [facility], there is an appointment that has been made for you at the [facility] on MondayMay 14 at 2:30pm. For records of your hospital stay please go to Medical Records on the Ground Floor at [facility] to sign for a release of your records. If symptoms return please return to the Emergency Department. Please follow the attached Post Cardiac Catheterization & Interventional Procedure Discharge Instructions. If bleeding occurs from right groin; apply pressure and proceed to the nearest emergency room. If chest pain occurs; go to the nearest emergency room. Please monitor your glucose/sugar levels prior to taking diabetic medications. Diet: Heart Healthy, Diabetic Exchange Menu and low cholesterol Patient refuses the flu and the pneumococcal vaccines at time of this writing. Referrals: Gracie Carrillo MD [Staff Provider] - FAMILY PROVIDER,JM [Primary Care Provider] - <Aleja Durham - Last Filed: 05/02/18 18:03> Provider - Provider Date of Admission: 04/30/18 02:42 Attending physician: Aleja Durham MD Primary care physician: JM FAMILY PROVIDER Hospital Course - Lab Results Lab Results: Micro Results 04/30/18 04:00 Naris MRSA Culture (Admit) - Final MRSA NOT DETECTED Most Recent Lab Values WBC 11.3 10^3/ul (4.5-11.0) H 05/01/18 05:25 RBC 4.39 10^6/uL (3.5-6.1) 05/01/18 05:25 Hgb 13.3 g/dL (14.0-18.0) L 05/01/18 05:25 Hct 38.9 % (42.0-52.0) L 05/01/18 05:25 MCV 88.6 fl (80.0-105.0) 05/01/18 05:25 MCH 30.3 pg (25.0-35.0) 05/01/18 05:25 MCHC 34.2 g/dl (31.0-37.0) 05/01/18 05:25 RDW 13.4 % (11.5-14.5) 05/01/18 05:25 Plt Count 194 10^3/uL (120.0-450.0) 05/01/18 05:25 MPV 11.5 fl (7.0-11.0) H 05/01/18 05:25 Gran % 76.6 % (50.0-68.0) H 05/01/18 05:25 Lymph % (Auto) 10.5 % (22.0-35.0) L 05/01/18 05:25 [place] % (Auto) 10.7 % (1.0-6.0) H 05/01/18 05:25 Eos % (Auto) 2.0 % (1.5-5.0) 05/01/18 05:25 Baso % (Auto) 0.2 % (0.0-3.0) 05/01/18 05:25 Gran # 8.63 (1.4-6.5) H 05/01/18 05:25 Lymph # (Auto) 1.2 (1.2-3.4) 05/01/18 05:25 [place] # (Auto) 1.2 (0.1-0.6) H 05/01/18 05:25 Eos # (Auto) 0.2 (0.0-0.7) 05/01/18 05:25 Baso # (Auto) 0.02 K/mm3 (0.0-2.0) 05/01/18 05:25 PT 11.3 SECONDS (9.4-12.5) 04/30/18 02:35 INR 0.99 04/30/18 02:35 APTT 25.8 Seconds (25.1-36.5) 04/30/18 02:35 Sodium 139 mmol/L (132-148) 05/01/18 05:25 Potassium 3.8 mmol/L (3.6-5.0) 05/01/18 05:25 Chloride 101 mmol/L (98-107) 05/01/18 05:25 Carbon Dioxide 27 mmol/L (21-33) 05/01/18 05:25 Anion Gap 15 (10-20) 05/01/18 05:25 BUN 22 mg/dL (7-21) H 05/01/18 05:25 Creatinine 0.7 mg/dl (0.8-1.5) L 05/01/18 05:25 Est GFR ( Amer) > 60 05/01/18 05:25 Est GFR (Non-Af Amer) > 60 05/01/18 05:25 POC Glucose (mg/dL) 168 mg/dL (65-110) H 05/01/18 16:17 Random Glucose 213 mg/dL (70-110) H 05/01/18 05:25 Hemoglobin A1c 9.3 % (4.2-6.5) H 05/01/18 05:25 Calcium 9.6 mg/dL (8.4-10.5) 05/01/18 05:25 Phosphorus 4.2 mg/dL (2.5-4.5) 05/01/18 05:25 Magnesium 2.4 mg/dL (1.7-2.2) H 05/01/18 05:25 Total Bilirubin 3.0 mg/dL (0.2-1.3) H 05/01/18 05:25 AST 69 U/L (17-59) H 05/01/18 05:25 ALT 89 U/L (7-56) H 05/01/18 05:25 Alkaline Phosphatase 113 U/L (38-126) 05/01/18 05:25 Lactate Dehydrogenase 790 U/L (333-699) H 05/01/18 05:25 Total Creatine Kinase 115 U/L (35-230) 05/01/18 05:25 CK-MB (CK-2) 4.7 ng/mL (0.0-3.6) H 04/30/18 02:35 CK-MB (CK-2) % Cancelled 04/30/18 02:35 Troponin I 9.61 ng/mL H* D 05/01/18 05:25 Total Protein 7.1 g/dL (5.8-8.3) 05/01/18 05:25 Albumin 4.0 g/dL (3.0-4.8) 05/01/18 05:25 Globulin 3.2 gm/dL 05/01/18 05:25 Albumin/Globulin Ratio 1.3 (1.1-1.8) 05/01/18 05:25 Triglycerides 134 mg/dL (35-160) 05/01/18 05:25 Cholesterol 231 mg/dL (130-200) H 05/01/18 05:25 LDL Cholesterol Direct 27 mg/dL (0-129) 05/01/18 05:25 HDL Cholesterol 43 mg/dL (29-60) 05/01/18 05:25 TSH 3rd Generation 1.07 mIU/mL (0.46-4.68) 05/01/18 05:25 Blood Type B POSITIVE 04/30/18 02:45 Blood Type Confirm B POSITIVE 04/30/18 03:00 Antibody Screen Negative 04/30/18 02:45 BBK History Checked No verified bt 04/30/18 02:45 Attending/Attestation - Attestation I have personally seen and examined this patient.: Yes I have fully participated in the care of the patient.: Yes I have reviewed all pertinent clinical information, including history, physical exam and plan: Yes Notes (Text): 05/02/18 18:02 Attending note; Patient seen and examined with resident. Patient is a 58 year old male with past medical history of hypertension and diabetes mellitus 2 presents with 4 day history of left sided pressure like chest pain that radiates to left axilla and left shoulder. EKG showed ST elevation in the anterolateral leads. Status post code heart and LAD stent placement. Continue aspirin, Plavix, Coreg and lisinopril and Lipitor. Currently patient is pain-free. Ambulating. Denies any shortness of breath. Hypertension and diabetes; dietary education given. Medication compliance insisted. Patient was not taking any medications at home. Patient is advised to complete [employer] Paperwork. Advised to follow up in [facility] clinic upon discharge. patient was feeling better. Wanted to go home. Advised to follow-up with PMD and cardiology. Medication prescription given. The diagnosis, follow-up plan discussed with patient and patient's in detail.
--- NOTE | 2018-05-01 17:14 | PN ---
Copied To: Gracie Carrillo MD Attending MD: Gracie Carrillo MD DATE: 05/01/[address] Jake Camejo. REASON FOR DICTATION: Acute STEMI, status post primary angioplasty of LAD. SUBJECTIVE: The patient denies any chest pain, shortness of breath, or any palpitation. OBJECTIVE: GENERAL: Not in apparent distress. VITAL SIGNS: Temperature afebrile, heart rate 66, and blood pressure 123/84. HEENT: PERRLA. Extraocular muscles intact. NECK: Supple. No carotid bruits or thyromegaly. CHEST: Clear to auscultation. HEART: S1 and S2, regular. ABDOMEN: Soft. EXTREMITIES: Clubbing and cyanosis negative. LABORATORY DATA: Blood workup as follows: WBC 11.3, hemoglobin 13.3, hematocrit 38.9, and platelet count 194. Chemistry shows sodium 139, potassium 3.8, chloride 101, carbon dioxide 27, anion gap of 15. BUN 22, creatinine 0.7. Troponin 9.61. EKG shows normal sinus ST elevation in the lateral lead. No reciprocal ST depression noted consistent with recent [place]. Echocardiography pending. IMPRESSION: A 58-year-old male with no significant past medical history admitted with acute anterior wall myocardial infarction, status post percutaneous transluminal coronary primary angioplasty of left anterior descending. RECOMMENDATION: Continue Naprosyn. The patient was complaining of chest pain most likely secondary to early pericarditis from [place]. Continue Brilinta 90 mg twice, continue Coreg 6.25 b.i.d., continue baby aspirin 81 mg daily, continue DVT prophylaxis, continue atorvastatin. We will review the echo. When it is done, we will follow with you. Possible discharge planning. We will supplement potassium. The patient's potassium is 3.7. We will follow with you. Troponin is trending down. Continue lisinopril 25 mg daily. Since the patient does not have insurance, we will start Plavix from tomorrow and discontinue Brilinta today. We will supplement potassium 40 and possible discharge planning. Discussed with Dr. Durham. film reviewed as mentioned by Dr. Camejo. No need for further coronary intervention at this point. Aggressive medical treatment, emphasis weight reduction modification, lifestyle modification, risk factor explained to the patient. Thank you, Dr. Durham, for providing us the opportunity in taking care of the patient, Ralphlisandro Polkdonis. Gracie Carrillo MD cc: Aleja Durham MD
[2018-05-01 17:29] VITALS: BP 131/87; PULSE 93
[2018-05-01 18:11] VITALS: RESP 18; TEMP 98; O2SAT 96
--- NOTE | 2018-05-07 17:13 | CARD ---
APPROVED REPORT Date of service: 04/30/2018 Procedure(s) performed: Left Heart Catheterization Coronary Arteriogram PTCA with Stenting if Mid LAD HISTORY The patient is a 58 year-old male with a history of : diabetes mellitus with diet treatment . CASE TECHNIQUE The patient was brought emergently to the Cardiac Catheterization Laboratory in a fasting state and was prepped and draped in a sterile manner. The right femoral groin was infiltrated with 2% Lidocaine subcutaneous anesthesia. A 6 Fr x 10 cm [place] sheath was inserted using coronary diagnostic catheters. The left coronary system was accessed and visualized with a 6F JL4 CATH DXT 100 CMDiagnostic catheter. The right coronary system was accessed and visualized with a 6F JR 4 CATH DXT 100 CMDiagnostic catheter. The left ventricle was accessed and visualized with a 6F JR 4 CATH DXT 100 CMDiagnostic catheter. Left ventricular/Aortic Valve gradient assessed on pullback. Pre-demployment femoral angiogram was performed . Closure device was deployed with a 6 Fr Angio-Seal without any complications. The patient tolerated the procedure well and there were no complications associated with the procedure. Vessel Analysis The patient's coronary anatomy is right dominant. The left main coronary artery is a large size vessel . There is a 0% stenosis . The left main bifurcates to the left anterior descending and circumflex. The left anterior descending artery is a medium size vessel . There is a 99% stenosis in the mid segment. The first diagonal branch is a small size vessel . There is a 0% stenosis . The second diagonal branch is a small size vessel . There is a 60% stenosis . The circumflex artery is a large size vessel . There is a 40% stenosis in the mid segment. The first obtuse marginal branch is a small size vessel . There is a 0% stenosis . The right coronary artery is a medium size vessel . There is a 60% stenosis in the proximal segment. and 50% stenosis in mid segment Left Ventricle The left ventricular end diastolic pressure is 25 mmHg. There was no gradient across the aortic valve upon pullback. PCI Technique Lesion Anticoagulation was achieved with , Integrilin and Heparin bolus. Percutaneous coronary intervention was performed on the mid left anterior descending artery segment. The lesion stenosis prior to intervention was 99% with AMIE 2 flow. A 6 Fr XB 3.5 Guide Catheter was used to engage the left ostium. A 0.014 x 190 cm BMW [place] II J Tip Interventional Guidewire was used to cross the lesion. BALLOON DILATION A Balloon catheter 2.0 x 10 mm Sprinter RX was inserted and inflated up to 12.00atm for 24seconds. STENT DEPLOYMENT A drug-eluting stent STENT RESOLUTE KIMMY 2.25 X12 was inserted and inflated up to 12.00atm for 24seconds. Final angiography reveals 0 % stenosis with AMIE 3 flow. Conclusion Severe single vessel CAD as described above s/p PTCA /BENIGNO to mid LAD, with moderate residual cad. Recommendations Cardiac Rehabilitation Referral Aggressive Medical TherapyCardiac Risk Reduction Program ASA 81mg daily for life Brilinta 90mg BID for atleast 1 year 2D echo to evaluate LV function Thank you for allowing me to participate in the care of your patient
== END 2018-05-01 20:13 | disposition home or self-care (01) | DRG 247 ==
LOC: ED 02:11 → ERH 02:42 → CCU 03:46 → 2RNO 17:57 → UNDODISIN 05-01 16:21
PROVIDERS: ADMIT Hospitalist; ATTEND Internal Medicine
PROC: 027034Z Dilation of Coronary Artery, One Artery with Drug-eluting Intraluminal Device, Percutaneous Approach (ICD-10-PCS; principal; 2018-04-30)
PROC: 4A023N7 Measurement of Cardiac Sampling and Pressure, Left Heart, Percutaneous Approach (ICD-10-PCS; 2018-04-30)
PROC: B211YZZ Fluoroscopy of Multiple Coronary Arteries using Other Contrast (ICD-10-PCS; 2018-04-30)
PROC: B215YZZ Fluoroscopy of Left Heart using Other Contrast (ICD-10-PCS; 2018-04-30)
PROC: 3E033PZ Introduction of Platelet Inhibitor into Peripheral Vein, Percutaneous Approach (ICD-10-PCS; 2018-04-30)
DX: I21.09 ST elevation (STEMI) myocardial infarction involving other coronary artery of anterior wall (principal); I25.10 Atherosclerotic heart disease of native coronary artery without angina pectoris; E78.00 Pure hypercholesterolemia, unspecified; E11.9 Type 2 diabetes mellitus without complications; I10 Essential (primary) hypertension; Z91.14 Patient's other noncompliance with medication regimen; Z87.891 Personal history of nicotine dependence